=== PATIENT | male | born 1945 | race Caucasian/White ===

== ENCOUNTER 2017-01-18 17:42 | Emergency (ER) | payer MEDICARE, OTHER ==
[~2017-01-18] VITALS: Ht 177.8 cm; Wt 69.1 kg
[2017-01-18 17:45] VITALS: TEMP 97.9
[2017-01-18] MEDS ORDERED: CRESTOR 10MG10 MG PO (18:29)
[2017-01-18] MEDS ORDERED: PRINIVIL10 MG PO (18:33)
[2017-01-18] MEDS ORDERED: ISOPTIN SR240 MG PO (18:33)
[2017-01-18] MEDS ORDERED: ASPIRIN 81M81 MG/TA2 PO (18:34)
[2017-01-18] MEDS ORDERED: ONE DAILY1 TA1 PO (18:34)
[2017-01-18 20:35] VITALS: BP 144/91; PULSE 76
== END 2017-01-18 20:45 | disposition home or self-care (01) ==
LOC: COL.ER 17:42
DX: S52.502A Unspecified fracture of the lower end of left radius, initial encounter for closed fracture (principal); S00.93XA Contusion of unspecified part of head, initial encounter; I10 Essential (primary) hypertension; F17.290 Nicotine dependence, other tobacco product, uncomplicated; Z79.82 Long term (current) use of aspirin; W11.XXXA Fall on and from ladder, initial encounter; Y92.009 Unspecified place in unspecified non-institutional (private) residence as the place of occurrence of the external cause
CPT/HCPCS: J2270; J2405; J2704; J2765; J7030

== ENCOUNTER → 2017-06-29 | Outpatient (CLI) | payer MEDICARE, OTHER ==
[2005-04-18 10:15] VITALS: TEMP 98.6
[~2017-06-29] MED LIST: ASPIRIN 81M81 MG/TA2 PO; CRESTOR 10MG10 MG PO; ISOPTIN SR240 MG PO; ONE DAILY1 TA1 PO; PRINIVIL10 MG PO
== END ==
LOC: COL.RAD 07:44
DX: Z13.6 Encounter for screening for cardiovascular disorders (principal)